=== PATIENT | female | born 1995 | race Caucasian/White ===

== ENCOUNTER 2021-03-19 04:15 | Outpatient (CLI) | payer BC, SELFPAY ==
--- NOTE | 2021-03-19 | DI.RAD_ITS ---
Exam(s) XR FOOT LT COMPLETE XR HEEL LT OS CALCIS EXAM: XR FOOT LT COMPLETE CLINICAL HISTORY: LT FOOT PAIN, M79.672 TECHNIQUE: COMPARISON: CR XR HEEL LT OS CALCIS from 03/19/2021 CR XR HEEL LT OS CALCIS from 03/19/2021 FINDINGS: Two views of the heel and three views of the foot were obtained. The ankle mortise appears well main tained as visualized. No abnormality seen involving the subtalar joints or calcaneus. Alignment of bones of the foot appears within normal limits. No focal bony or soft tissue abnormality seen. IMPRESSION: Negative examination of the foot and, an AP view of the calcaneus is unremarkable. RADIATION DOSE DELIVERED: Total DLP
== END 2021-03-19 04:35 ==
PROVIDERS: Visit Provider Naturopath
DX: M79.672 Pain in left foot (principal)
CPT/HCPCS: 73630; 73650

== ENCOUNTER 2021-04-12 03:29 | Outpatient (CLI) | payer BC, SELFPAY ==
[2021-04-12 10:58] LABS: Abs Immature Grans 0.01 10^3/uL (0.0-0.06); Absolute Basophil Count 0.02 10^3/uL (0.0-0.2); Absolute Eosinophil Count 0.05 10^3/uL (0.0-0.7); Absolute Lymphocyte Count 1.21 10^3/uL (1.2-3.4); Absolute Monocyte Count 0.35 10^3/uL (0.1-0.8); Absolute Neutrophil Count 1.98 10^3/uL (1.2-6.7); Basophils % 0.6; Eosinophils % 1.4; HCT 38.8 % (36.0-46.0); HGB 12.4 g/dL (11.2-15.7); Immature Grans % 0.3; Lymphocytes % 33.4; MCH 30.1 pg (27.0-33.0); MCV 94.2 fL (80-95); MPV 9.8 fL (8.0-11.0); Monocytes % 9.7; Neutrophils % 54.6; Nucleated RBC 0 %; Platelet Count 238 10^3/uL (130-400); RBC 4.12 10^6/uL (3.93-5.22); RDW-SD 44.9 fL; WBC 3.62 10^3/uL (4.4-10.8)
[2021-04-12 11:02] LABS: ESR 7 mm/hr (0-20)
[2021-04-12 13:20] LABS: Cholesterol 164 mg/dL (<200); Folate 14.7 ng/mL (8.6-20.0); HDL Cholesterol 85 mg/dL (40-60); Vitamin B12 415 pg/mL (193-986)
[2021-04-12 13:22] LABS: Triglyceride < 25 mg/dL (<150)
[2021-04-12 14:03] LABS: C-Reactive Protein < 0.05 mg/dL (0.0-0.3)
[2021-04-12 14:07] LABS: Iron 139 ug/dL (50-170); Total Iron Binding Capacity 301 ug/dL (250-450); Transferrin Sat 46 % (15-50)
[2021-04-12 15:33] LABS: LDL CHOLESTEROL 68 mg/dL (<100)
[2021-04-13 12:51] LABS: Lipoprotein (a) 112 nmol/L (<75)
== END 2021-04-12 03:30 | disposition home or self-care (01) ==
LOC: LBO 03:30
PROVIDERS: Visit Provider Naturopath
DX: K90.0 Celiac disease (principal); Z13.220 Encounter for screening for lipoid disorders; M79.672 Pain in left foot
CPT/HCPCS: 36415; 80061; 83695; 83721; 85652; 82607; 82746; 83540; 83550; 85025; 86140